=== PATIENT | male | born 1950 | race Caucasian/White ===

== ENCOUNTER 2016-11-26 12:16 | Emergency (ER) | payer MEDICARE ==
[~2016-11-26] VITALS: Ht 170.2 cm; Wt 110.8 kg
[~2016-11-26 12:16] MED LIST: ASPI-621 PO; CARV6.2512 PO; CILO100T PO; DOCU-30 PO; DOXY100T PO; FAMO20TA7 PO; GUAI100L11 PO; HYDR-3241 PO; IPRA3AMP NPPB; IPRA4AER INH; LISI-170 PO; LOPE2TAB28 PO; METH4TAB6 PO; PRED5TAB PO; ZOLP-413 PO
[2016-11-26 12:25] VITALS: BP 198/110
[2016-11-26 14:21] LABS: BLOOD UREA NITROGEN 17 mg/dL (7-18)
[2016-11-26 14:24] LABS: ASPARTATE AMINO TRANSFERASE 38 U/L (15-37)
== END 2016-11-26 14:06 | disposition left against medical advice (07) ==
LOC: ED 14:00
DX: S10.96XA Insect bite of unspecified part of neck, initial encounter (principal); S30.860A Insect bite (nonvenomous) of lower back and pelvis, initial encounter; J44.9 Chronic obstructive pulmonary disease, unspecified; W57.XXXA Bitten or stung by nonvenomous insect and other nonvenomous arthropods, initial encounter; Y93.89 Activity, other specified; Y92.009 Unspecified place in unspecified non-institutional (private) residence as the place of occurrence of the external cause; Y99.9 Unspecified external cause status
CPT/HCPCS: 36415; 80053; 85025; 99284; Q0177